=== PATIENT | male | born 1985 | race Caucasian/White ===

== ENCOUNTER 2021-02-01 11:22 | Outpatient (CLI) | payer BC, OTHER, SELFPAY ==
[2021-02-01 11:39] VITALS: BP 101/66; PULSE 70; RESP 17; TEMP 37.1; O2SAT 100
[2021-02-01] MEDS: Lactated Ringers 1,000 ML 80 ML IV (12:15)
[2021-02-01] MEDS: Midazolam 2 MG/2 ML VIAL IVP (12:27)
[2021-02-01] MEDS: fentaNYL 100 MCG/2 ML VIAL IVP (12:28)
--- NOTE | 2021-02-01 13:35 | DI.RAD_ITS ---
Exam(s) XR PAIN CLINIC FLUORO JOINT IN EXAM: XR PAIN CLINIC FLUORO JOINT IN CLINICAL HISTORY: Dx: Knee Osteoarthritis. TECHNIQUE: 2D and realtime digital imaging was performed. CONTRAST MATERIAL: None COMPARISON: No exams were available for comparison FINDINGS: Fluoroscopy was provided during [facility] pain management therapy. See procedure report for de tails IMPRESSION: As above. Total fluoroscopy time 63.7 seconds. Cumulative dose 3.59mGy RADIATION DOSE DELIVERED: Ka,r= mGy
[2021-02-01 13:39] VITALS: BP 103/59; PULSE 69; RESP 13; O2SAT 100
--- NOTE | 2021-02-01 13:41 | PDOC.PAIN_ITS ---
Pain Clinic Procedure Note Procedure Note Procedure Note: LEFT GENICULAR NERVE RADIOFREQUENCY ABLATION WITH THE COOLIEF MACHINE Date of Service: February 01, 2021 Patient: Juan Carlos Parks Provider: Tae Gregory DO, MPH Pre-operative diagnosis: Left knee pain Post-operative diagnosis: Same Pre-procedure pain VAS: 8.5/10 COMMENTS: Previous Genicular nerve block to the LEFT knee at [facility]. Juan Carlos Parks has been referred to the [facility] for LEFT genicular nerve radiofrequency ablation. Juan Carlos was interviewed and the medical record reviewed. There were no medical, pharmacologic, radiographic or other structural contraindications to attempting fluoroscopically guided LEFT genicular nerve radiofrequency ablation. Risks and potential side effects as well as potential benefit of the procedure were reviewed with Juan Carlos Parks , and his voiced concerns were addressed. After I believed that the patient was completely informed, the printed consent form was signed. Standard time-out procedure was performed. Juan Carlos was placed in the supine position on the fluoroscopy table and automated blood pressure cuff and pulse oximeter applied. The skin entry points for approaching LEFT superolateral genicular nerve, the terminal branch of the vastus intermedius, the superomedial genicular nerve and the inferomedial genicular was identified under the most advantageous fluoroscopic view and marked. Following thorough Chlorhexadine preparation of the skin and draping, 1% lidocaine infiltration of the skin entry point and subcutaneous tissues was accomplished using a 1.5 25G needle. Next, the 10 cm 18G RF Cannula with a 10 mm active tip was advanced to os at the location of the specific nerve roots (3) using fluoroscopic guidance. Next, sensory and motor testing was performed and no abnormal findings were found. Next, 1 cc of 2% Lidocaine was injected at each site. The lesion was then created with 80 degrees C for 90 seconds. Each needle was advance 1 cm and the lesion was completed again. Each cannula was advanced until the tip reached the posterior aspect of the bone shaft. 1/4 cc of Depomedrol (40 mg/cc) was then injected at each site followed by 2 cc of 0.5% Bupivacaine as the needle was withdrawn. The needles were removed without d ifficulty. Juan Carlos's vital signs were stable throughout the procedure and were as recorded in the docflowsheet by the nursing staff. If given, dosages of intravenous drugs for anxiolysis and analgesia were documented in MAR. Follow up plans and appointments were discussed with the Juan Carlos Parks . Post procedure instruction was given as documented in nursing documentation and having met discharge criteria, Juan Carlos was discharged from the [facility]. COMMENTS: No complications. Will WJ1, Johanny SJ, Alexey JG, Kaela KeaneG, Juan J CARRILLO, Jayna PH, Star JW. Radiofrequency treatment relieves chronic knee osteoarthritis pain: a double-blind randomized controlled trial. Pain. 2010;152(3):481-7. doi: 10.1016/j.pain.2010.09.029. Мария S1, Cesar ON2, Jack Y3, ?zl?lerdaphnie P2, Rei U1, Eduar ?m?rl? I. Which one is more effective for the clinical treatment of chronic pain in knee osteoarthritis: radiofrequency neurotomy of the genicular nerves or intra- articular injection? Int J Rheum Dis. 2016 Feb 15. F/U with our office by phone I personally performed this entire procedure. Tae Gregory DO, MPH Pain Management Attending Physician
[2021-02-01] MEDS: Lidocaine 2% Pres-Free 5 ML VIAL IJ (13:47)
[2021-02-01] MEDS: Bupivacaine 0.5% Pres-Free 10 ML VIAL IJ (13:48)
[2021-02-01] MEDS: methylPREDNISolone ACETATE 40 MG/ML VIAL IJ (13:48)
[2021-02-01] MEDS: Lidocaine 1% Pres-Free 30 ML VIAL IJ (13:49)
== END 2021-02-01 11:23 | disposition home or self-care (01) ==
PROVIDERS: Visit Provider Preventive Medicine Occupational Medicine
DX: M25.562 Pain in left knee (principal)
CPT/HCPCS: 64624; 77002; J1030; J2250; J3010